=== PATIENT | female | born 1995 | race Caucasian/White ===

== ENCOUNTER 2018-08-26 01:00 | Emergency (ER) | payer SELFPAY ==
[~2018-08-26] VITALS: Ht 172.7 cm; Wt 63.0 kg
--- NOTE | 2018-08-26 01:07 | NUR ---
Dr. Mejia at bedside to evaluate pt.
--- NOTE | 2018-08-26 01:17 | NUR ---
RECEIVED REPORT FROM CHADD HUNG TO ASSUME PT. CARE.
--- NOTE | 2018-08-26 01:46 | NUR ---
PT BEDSIDE REPORT FROM CHARLETTE FLORENTINO. PT RESTING COMFORTABLY ON GURNEY. NO IMMEDIATE NEEDS. WCTM.
--- NOTE | 2018-08-26 02:48 | NUR ---
mother called and updated for patient's plan of care. friends at bedside.
[2018-08-26 03:20] VITALS: BP 123/80
--- NOTE | 2018-08-26 03:20 | NUR ---
PT FRIENDS AT BEDSIDE. GIVEN WATER PER REQUEST. [id number]. WILL ATTEMPT TO AMBULATE PER MD ORDER.
--- NOTE | 2018-08-26 03:28 | NUR ---
PT AMB W/ MODERATELY STEADY GAIT. MD NOTIFIED.
== END 2018-08-26 03:46 | disposition home or self-care (01) ==
LOC: ED 03:40
DX: F10.120 Alcohol abuse with intoxication, uncomplicated (principal); J45.909 Unspecified asthma, uncomplicated
CPT/HCPCS: 99283